=== PATIENT | male | born 1935 | race Caucasian/White ===

== ENCOUNTER → 2016-10-15 | Outpatient (CLI) | payer MEDICARE, BC | END | disposition home or self-care (01) | LOC: LABWHC1 07:34 | PROVIDERS: ATTEND Urology | DX: C61 Malignant neoplasm of prostate (principal) | CPT/HCPCS: 36415; 84153 ==

== ENCOUNTER → 2017-01-22 | Outpatient (CLI) | payer MEDICARE, BC ==
[2017-01-22 12:54] LABS: ALT 38 U/L (21-72); AST 32 U/L (17-59); Alkaline Phosphatase 128 U/L (38-126); Anion Gap 9 mmol/L; Blood Urea Nitrogen 28 mg/dL (9-20); Calcium 10.6 mg/dL (8.4-10.2); Carbon Dioxide 25 mmol/L (22-30); Chloride 107 mmol/L (98-107); Cholesterol 137 mg/dL (<200); Glucose 101 mg/dL (74-99); HDL Cholesterol 58 mg/dL (40-60); Non-African American GFR(MDRD) >60 (>60 ml/min/1.73 sqM); Potassium 4.4 mmol/L (3.5-5.1); Sodium 141 mmol/L (137-145); Total Bilirubin 0.5 mg/dL (0.2-1.3); Total Protein 6.8 g/dL (6.3-8.2); Triglycerides 80 mg/dL (<150)
[2017-01-22 13:16] LABS: Prostate Specific Antigen <0.06 ng/mL (0.00-4.00)
== END | disposition home or self-care (01) ==
LOC: LABWHC1 07:17
PROVIDERS: ATTEND Internal Medicine Interventional Cardiology
DX: C61 Malignant neoplasm of prostate (principal); E78.2 Mixed hyperlipidemia
CPT/HCPCS: 36415; 80053; 80061; 84153

== ENCOUNTER → 2017-04-11 | Outpatient (CLI) | payer MEDICARE, BC | END | disposition home or self-care (01) | LOC: LABWHC1 07:01 | PROVIDERS: ATTEND Urology | DX: C61 Malignant neoplasm of prostate (principal) | CPT/HCPCS: 36415; 84153 ==

== ENCOUNTER → 2017-11-27 | Outpatient (CLI) | payer MEDICARE, BC ==
--- NOTE | 2017-11-27 10:11 | US ---
EXAMINATION TYPE: US kidneys/renal and bladder DATE OF EXAM: 11/27/2017 COMPARISON: Renal ultrasound July 26 2015, CT abdomen August 09 2016 CLINICAL HISTORY: KIDNEY STONES Z84.1. Prostate CA, HX renal cysts, stones. Patient states gross chelsi turia on and off. Patient on Flomax EXAM MEASUREMENTS: Right Kidney: 12.3 x 5.8 x 5.0 cm cm Left Kidney: 12.8 x 4.7 x 5.7 cm Post Void Residual Volume: 0 mL Right Kidney: Upper pole cyst = 9.6 x 8.2 x 8.2 cm, Upper pole cyst = 2.0 x 2.3 x 1.9 cm, Lower pole septated cyst = 3.1 x 2.4 x 1.8 cm, multiple echogenic foci with shadowing. Decreased renal cortex. Left Kidney: 12.8 x 4.7 x 5.7 cm, Upper pole cyst = 1.2 x 1.2 x 1.0cm, mid pole, medial cyst = 1.4 x 1.3 x 1.1 cm, solid appearing mass lateral, mid pole = 2.5 x 2.4 x 2.0 cm, multiple echogenic foci w ith shadowing. Decreased renal cortex. Fullness in renal pelvis noted. Bladder: wnl Bilateral Jets seen: Yes Normal Post Void Residual: Yes There is no evidence for hydronephrosis at this point in time. Several cysts are scattered throughout both kidneys . Largest upper pole level measures 9.6 cm on long axis appears simple in morpholog y. There is 3.1 cm cyst with thin septation corresponds to cystic lesion medially and posteriorly mid to lower pole level right kidney that has thin septa with thin linear calcification on CT. Prominent left renal pelvis is redemonstrated. Several cystic lesions are scattered throughout left k idney. Most suspicious lesion medially left kidney on CT axial image 23 series 3 is less well-seen on ultrasound. There is cortical thinning in both kidneys redemonstrated. There are hyperechoic foci corresponding t o nonobstructing renal calculi bilaterally redemonstrated. IMPRESSION: As above. Redemonstration of bilateral kidney stones without hydronephrosis. Suspicious 2.0 cm solid enhancing mass with washout medially mid pole level left kidney is worrisome for renal cell carcinoma . Consider RFA treatment.
== END ==
LOC: RADUSWWP 09:12
PROVIDERS: ATTEND Urology
DX: N20.0 Calculus of kidney (principal); N28.1 Cyst of kidney, acquired; R93.421 Abnormal radiologic findings on diagnostic imaging of right kidney; R93.422 Abnormal radiologic findings on diagnostic imaging of left kidney; Z84.1 Family history of disorders of kidney and ureter
CPT/HCPCS: 76770

== ENCOUNTER → 2017-12-20 | Outpatient (CLI) | payer MEDICARE, BC ==
[2017-12-20 09:30] LABS: Basophils % (A) 1 %; Eosinophils # (A) 0.1 k/uL (0-0.7); Eosinophils % (A) 2 %; HCT 44.1 % (39.0-53.0); HGB 14.9 gm/dL (13.0-17.5); Lymphocytes # (A) 1.1 k/uL (1.0-4.8); Lymphocytes % (A) 21 %; MCH 33.7 pg (25.0-35.0); MCHC 33.8 g/dL (31.0-37.0); MCV 99.7 fL (80.0-100.0); Monocytes # (A) 0.3 k/uL (0-1.0); Monocytes % (A) 6 %; Neutrophils # (A) 3.6 k/uL (1.3-7.7); Neutrophils % (A) 68 %; Platelet Count 150 k/uL (150-450); RBC 4.42 m/uL (4.30-5.90); RDW 13.9 % (11.5-15.5); WBC 5.4 k/uL (3.8-10.6)
[2017-12-20 09:33] LABS: Appearance,Urine Clear (Clear); Bilirubin,Urine Negative (Negative); Blood,Urine Small (Negative); Color,Urine Yellow; Glucose,Urine (UA) Negative (Negative); Ketones,Urine Negative (Negative); Leukocyte Esterase,Urine Negative (Negative); Mucus,Urine Rare /hpf; Nitrite,Urine Negative (Negative); PH, Urine 5.5 (5.0-8.0); Protein,Urine Trace (Negative); RBC,Urine 17 /hpf (0-5); Specific Gravity,Urine 1.014 (1.001-1.035); Squamous Epithelial Cell,Urine <1 /hpf (0-4); Urobilinogen,Urine <2.0 mg/dL (<2.0); WBC,Urine 2 /hpf (0-5)
[2017-12-20 09:47] LABS: Calcium 10.3 mg/dL (8.4-10.2); Potassium 4.7 mmol/L (3.5-5.1)
== END | disposition home or self-care (01) ==
LOC: LABWHC1 08:38
PROVIDERS: ATTEND Internal Medicine Nephrology
DX: N20.0 Calculus of kidney (principal)
CPT/HCPCS: 36415; 80048; 81001; 85025

== ENCOUNTER → 2017-12-27 | Outpatient (CLI) | payer MEDICARE, BC ==
--- NOTE | 2017-12-28 12:01 | CT ---
EXAMINATION TYPE: CT abdomen pelvis w con DATE OF EXAM: 12/27/2017 COMPARISON: Prior exam 08/09/2016 CT abdomen, renal ultrasound 11/27/2017 HISTORY: Left renal mass found on ultrasound. CT DLP: 707.4 mGycm Automated exposure control for dose reduction was used. TECHNIQUE: Helical acquisition of images from the lung bases through the pelvis have been completed. CONTRAST: Performed with Oral Contrast and with IV Contrast, patient injected with 80 mL of Isovue M300. FINDINGS: There is a hiatal hernia. Coronary artery calcifications are present. LUNG BASES: Punctate subpleural calcified nodule present in the left lower lobe posterior laterally. AORTA: No significant abnormality is appreciated. LIVER/GB: No significant abnormality is appreciated. PANCREAS: No significant abnormality is seen. SPLEEN: Calcified granuloma suspected within the spleen. ADRENALS: No significant abnormality is seen. KIDNEYS: Multiple cysts are again noted to be associated with the kidneys, largest exophytic simple c yst at the upper pole the right kidney measures approximately 9.8 cm in greatest dimension. Posterior cyst shows a small associated calcification within the right kidney. Solid mass enhances in the post erior cortex left kidney and measures approximately 2.7 cm in greatest dimension as on prior CT. Mult iple nonobstructive calculi are scattered within the left kidney, at least 4 calculi, largest at the upper pole measures approximately 7 to 8 mm in greatest dimension. Cortical cyst also associated with the left kidney, at least 3 cysts are present, the largest measuring only 14 mm. REPRODUCTIVE ORGANS: multiple metallic densities associated with the prostate gland. BOWEL: Extensive diverticular changes associated with the sigmoid colon. Colonic interposition noted anterior to the lower aspect of the right lobe of the liver. FREE AIR: No Free Air visible. ASCITES: None visible. PELVIC ADENOPATHY: None visualized. RETROPERITONEAL ADENOPATHY: No Retroperitoneal Adenopathy visible. URINARY BLADDER: Urinary bladder shows wall thickening possibly due to cystitis or more likely chron ic outlet obstruction due to prostatic enlargement.. OSSEOUS STRUCTURES: No significant abnormality is seen. IMPRESSION: STABLE LEFT RENAL SOLID MASS. BILATERAL CYSTIC DISEASE ASSOCIATED WITH THE KIDNEYS, NOT ALL ARE SIMP LE CYSTS. Diverticulosis. Left-sided nephrolithiasis. Old granulomatous disease.
== END ==
LOC: RADCTMAIN 16:56
PROVIDERS: ATTEND Internal Medicine Nephrology
DX: N28.89 Other specified disorders of kidney and ureter (principal); N20.0 Calculus of kidney; K57.90 Diverticulosis of intestine, part unspecified, without perforation or abscess without bleeding; Q61.9 Cystic kidney disease, unspecified
CPT/HCPCS: 82565; 84520; 74177; 36415; Q9967

== ENCOUNTER → 2018-02-04 | Outpatient (CLI) | payer MEDICARE, BC ==
[2018-02-04 10:20] LABS: ALT 27 U/L (21-72); AST 29 U/L (17-59); Albumin 3.9 g/dL (3.5-5.0); Alkaline Phosphatase 106 U/L (38-126); Anion Gap 11 mmol/L; Blood Urea Nitrogen 27 mg/dL (9-20); Calcium 10.3 mg/dL (8.4-10.2); Carbon Dioxide 26 mmol/L (22-30); Chloride 108 mmol/L (98-107); Cholesterol 121 mg/dL (<200); Glucose 91 mg/dL (74-99); HDL Cholesterol 51 mg/dL (40-60); LDL Cholesterol,Calculated 57 mg/dL (0-99); Potassium 4.3 mmol/L (3.5-5.1); Sodium 145 mmol/L (137-145); Total Bilirubin 0.6 mg/dL (0.2-1.3); Total Protein 6.6 g/dL (6.3-8.2); Triglycerides 67 mg/dL (<150)
[2018-02-04 11:03] LABS: Prostate Specific Antigen <0.10 ng/mL (0.00-4.00)
== END | disposition home or self-care (01) ==
LOC: LABWHC1 07:43
PROVIDERS: ATTEND Internal Medicine Interventional Cardiology
DX: C61 Malignant neoplasm of prostate (principal)
CPT/HCPCS: 36415; 80053; 80061; 84153

== ENCOUNTER → 2018-04-07 | Outpatient (CLI) | payer MEDICARE, BC ==
--- NOTE | 2018-04-08 08:26 | US ---
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 EXAM MEASUREMENTS: Right Kidney: 11.1 x 6.0 x 5.9 cm Left Kidney: 11.5 x 5.8 x 5.6 cm Post Void Residual Volume: 18.6 mL Right Kidney: multiple renal cysts with largest at superior pole as simple cyst = 8.5 x 8.8 x 7.1cm; cystic cluster noted lateral mid pole = 3.9 x 3.1 x 2.2cm Left Kidney: multiple renal cysts are seen with largest simple cyst noted upper medial = 1.5 x 1.3 x 1.3cm; hyperechoic foci with posterior shadowing are noted upper and mid pole with upper pole area o f calcification = 1.0 x 0.8 x1.5cm and mid pole area of calcification = 0.9 x 0.8 x 0.6cm; prominent renal pelvis is noted at1.4cm A/P; hypoechoic round mass is noted on image #74 through 81 = 1.8 x 2 .2 x 1.8cm. Bladder: wnl Bilateral Jets seen: yes Normal Post Void Residual: yes No hydronephrosis is seen. Bilateral mild cortical renal thinning is additionally present. IMPRESSION: 1. Multiple nonobstructing left renal calculi the largest measuring 9 mm. No hydronephrosis bilateral ly. 2. Redemonstration of a solid left renal mass measuring 2.2 cm (difference in size is likely to relat e to differences in technique in comparison to the prior CT) concerning for renal cell carcinoma. Per cutaneous biopsy could be considered. 3. Bilateral renal cysts.
== END | disposition home or self-care (01) ==
LOC: RADUSWWP 15:30
PROVIDERS: ATTEND Urology
DX: N20.0 Calculus of kidney (principal); N28.1 Cyst of kidney, acquired; N28.89 Other specified disorders of kidney and ureter
CPT/HCPCS: 76770

== ENCOUNTER → 2018-07-25 | Outpatient (CLI) | payer MEDICARE, BC ==
--- NOTE | 2018-07-25 21:36 | MR ---
EXAMINATION TYPE: MR lumbar spine wo/w con DATE OF EXAM: 07/25/2018 COMPARISON: Prior lumbar MRI 07/31/2016 HISTORY: LBP, hx prostate ca 2015 TECHNIQUE: Multiplanar, multisequence images of the lumbar spine were acquired utilizing 7.5 mL intravenous Gada vist gadolinium contrast. L1-L2: Normal disc appearance without desiccation. No herniation, protrusion or disc bulging. No ca nal stenosis is present. Foramina are patent bilaterally. L2-L3: Facet arthropathy with hypertrophy of the ligamentum flavum causes posterior lateral mass effe ct on the thecal sac. Posterior broad-based disc bulge causes mild anterior mass effect on the thecal sac. No significant foraminal encroachment. Central stenosis shows a similar appearance. Suspect the re is a synovial cyst in the left posterior aspect of the spinal canal causing more mass effect from the left than on the right similar to prior exam, some peripheral enhancement is noted similar to lolita or L3-L4: Small central posterior disc herniation is again noted. Trefoil appearance of the thecal sac i s present due to hypertrophy of ligamentum flavum, facet arthropathy. No significant central stenosis or foraminal encroachment. L4-L5: Posterior broad-based disc bulge causes mild anterior mass effect on the thecal sac. Hypertrop hic change of the ligamentum flavum, facet arthropathy causes posterior lateral mass effect on the th ecal sac, there is a trefoil appearance of the thecal sac as on prior exam. L5-S1: Facet arthropathy with hypertrophy of ligamentum flavum causing posterior lateral mass effect on the thecal sac. Circumferential posterior disc bulge causes contact with the anterior thecal sac a nd possibly proximal S1 nerve roots. No significant foraminal encroachment or central stenosis. Lumbar segments are intact. No paraspinal masses are identified. Conus medullaris has a normal appe arance. Loss of vertebral body height at the anterior aspect of L1 is stable finding, there is multil evel spondylosis with minimal endplate discogenic marrow signal change. Some loss of disc height and signal at the intervertebral levels shows a similar appearance compatible with disc desiccation and d egenerative disc disease. Increased signal at the posterior aspect of the discs at L3-4, L4-5 and L5 S1 may represent small annular tears. Cortical cysts are associated with the right kidney. There may be extrarenal pelvis on the left,, possible solid lesion associated with the posterior cortex of the left kidney is again seen, findings are similar to prior exam. IMPRESSION: Degenerative disc disease, facet arthropathy, findings are similar compared to prior exam. Left renal mass again noted.
== END | disposition home or self-care (01) ==
LOC: RADMRIMAIN 18:46
PROVIDERS: ATTEND Physical Medicine & Rehabilitation
DX: M51.36 Other intervertebral disc degeneration, lumbar region (principal); M46.86 Other specified inflammatory spondylopathies, lumbar region; M50.121 Cervical disc disorder at C4-C5 level with radiculopathy; M43.12 Spondylolisthesis, cervical region; M47.22 Other spondylosis with radiculopathy, cervical region; Z85.46 Personal history of malignant neoplasm of prostate
CPT/HCPCS: 82565; 84520; 72158; 36415; A9585

== ENCOUNTER → 2018-11-13 | Outpatient (CLI) | payer MEDICARE, BC ==
[2018-11-13 16:47] LABS: Albumin 4.2 g/dL (3.80-4.90); Albumin/Globulin Ratio 1.83 (1.60-3.17); Anion Gap 6.6 mmol/L (4.00-12.00); Calcium 10.6 mg/dL (8.7-10.3); Carbon Dioxide 26.4 mmol/L (21.6-31.8); Globulin 2.3 g/dL (1.6-3.3); LDL Cholesterol,Calculated 64.8 mg/dL (0.0-131.0); Potassium 4.8 mmol/L (3.5-5.5); Total Bilirubin 0.6 mg/dL (0.2-1.2); Total Protein 6.5 g/dL (6.2-8.2); VLDL Calculation 11.2 mg/dL (5.00-40.00)
== END | disposition home or self-care (01) ==
LOC: LABWHC1 07:52
PROVIDERS: ATTEND Internal Medicine Interventional Cardiology
DX: E78.2 Mixed hyperlipidemia (principal)
CPT/HCPCS: 36415; 80053; 80061

== ENCOUNTER → 2019-01-19 | Outpatient (CLI) | payer MEDICARE, BC | LOC: LABWHC1 07:28 | PROVIDERS: ATTEND Urology | DX: C61 Malignant neoplasm of prostate (principal) | CPT/HCPCS: 36415; 84153; 84403 ==

== ENCOUNTER → 2019-05-19 | Outpatient (CLI) | payer MEDICARE, BC ==
[2019-05-19 10:27] LABS: Chol/HDL Ratio 2.72; LDL Cholesterol,Calculated 66.2 mg/dL (0.0-131.0); VLDL Calculation 12.8 mg/dL (5.00-40.00)
== END | disposition home or self-care (01) ==
LOC: LABWHC1 07:04
PROVIDERS: ATTEND Nurse Practitioner Adult Health
DX: E78.2 Mixed hyperlipidemia (principal)
CPT/HCPCS: 36415; 80061; 84450; 84460

== ENCOUNTER → 2019-08-05 | Outpatient (CLI) | payer MEDICARE, BC ==
--- NOTE | 2019-08-05 09:59 | MR ---
EXAMINATION TYPE: MR thoracic spine wo con DATE OF EXAM: 08/05/2019 COMPARISON: None HISTORY: rt side thoracic pain, no injury, hx of ca Standard multiplanar, multisequence MRI departmental protocol Multiplanar, multisequence images of the thoracic spine were acquired. FINDINGS: There is moderate to severe degenerative disc disease at all levels. At T1-T2 and T2-T3 no degenerative disc disease, canal stenosis or foraminal encroachment At T3-T4 is a chronic appearing moderate compression fracture T3. Proximal less than 5% retropulsion with no significant thecal sac compression or spinal cord contact. At T4-T5 there is sagittal disc bulging but no evidence of focal herniation, canal stenosis or forami nal encroachment. At T5-T6 there is a small focal central disc protrusion or tiny herniation with mild anterior thelma mounika thecal sac but no spinal cord contact or nerve root impingement. Neural foramina patent. At T6-T7 there is a small focal central disc herniation with mild impression upon the thecal sac. No spinal cord contact or nerve root impingement. Neural foramina patent. At T7-T8 no disc herniation or canal stenosis. No foraminal encroachment. T8-T9 central disc bulging but no canal stenosis or focal herniation. Neural foramina demonstrate mil d bilateral encroachment. At T9-T10 there is central and right paracentral disc bulging. Neural foramina are patent. No Canal s tenosis. Mild bilateral foraminal encroachment. At T10-T11 there is no disc herniation or canal stenosis. Mild facet arthropathy. Mild bilateral fora nolan encroachment. At T11-T12 there is no disc herniation or canal stenosis. No foraminal encroachment. There is no abnormal signal the visualized spinal cord. Benign-appearing renal cysts are noted. There is multilevel facet arthropathy. Visualized aorta of normal caliber. Incidental note is made to ky re degenerative disc disease involving the cervical spine with probable canal stenosis of the lower c ervical region. IMPRESSION: 1. There is a curvature of the spine with multilevel moderate to severe degenerative disc disease. Ma rrow signal is somewhat heterogeneous which is nonspecific. There are no contrasted images provided t o assess for pathologic enhancement. Recommend correlation contrast images or bone scan for further e valuation. 2. Multilevel foraminal encroachment. 3. Chronic appearing compression fracture T3 with minimal retropulsion and no significant mass effect upon the thecal sac or spinal cord contact. 4. Tiny central disc herniation T5-6 and T6-T7 with mild impression of the thecal sac but no spinal c ord contact or nerve root impingement. 5. Multilevel disc bulging as discussed above with no evidence of canal stenosis. 6. images of the cervical spine demonstrates severe multilevel degenerative disc disease with possibl e canal stenosis at multiple levels on the sagittal images. Correlate with MRI as clinically warrante d.
== END | disposition home or self-care (01) ==
LOC: RADMRIMAIN 08:46
PROVIDERS: ATTEND Physical Medicine & Rehabilitation
DX: M51.34 Other intervertebral disc degeneration, thoracic region (principal); M51.24 Other intervertebral disc displacement, thoracic region; M50.30 Other cervical disc degeneration, unspecified cervical region; I51.9 Heart disease, unspecified; E78.5 Hyperlipidemia, unspecified; I25.10 Atherosclerotic heart disease of native coronary artery without angina pectoris; Z85.46 Personal history of malignant neoplasm of prostate
CPT/HCPCS: 72146

== ENCOUNTER → 2019-12-17 | Outpatient (CLI) | payer MEDICARE, BC ==
[2019-12-17 11:26] LABS: African American GFR (CKD) 58.5 (60.0-200.0); Albumin/Globulin Ratio 1.9 (1.60-3.17); Anion Gap 5.6 mmol/L (4.00-12.00); BUN/Creat Ratio 18.46 Ratio (12.00-20.00); Calcium 10.1 mg/dL (8.7-10.3); Carbon Dioxide 27.4 mmol/L (21.6-31.8); Chol/HDL Ratio 2.57; Globulin 2.1 g/dL (1.6-3.3); LDL Cholesterol,Calculated 55.4 mg/dL (0.0-131.0); Non-African American GFR(CKD) 50.5 (60.0-200.0); Potassium 4.6 mmol/L (3.5-5.5); Total Bilirubin 0.8 mg/dL (0.2-1.2); Total Protein 6.1 g/dL (6.2-8.2); VLDL Calculation 13.6 mg/dL (5.00-40.00)
== END | disposition home or self-care (01) ==
LOC: LABWHC1 07:29
PROVIDERS: ATTEND Internal Medicine Interventional Cardiology
DX: E78.2 Mixed hyperlipidemia (principal)
CPT/HCPCS: 36415; 80053; 80061

== ENCOUNTER → 2020-03-08 | Outpatient (CLI) | payer MEDICARE, BC ==
--- NOTE | 2020-03-08 11:20 | US ---
EXAMINATION TYPE: US kidneys/renal and bladder DATE OF EXAM: 03/08/2020 COMPARISON: US dated 04/07/2018 CLINICAL HISTORY: ANDRÉS UNCERTAIN BEHAVIOR LEFT KIDNEY. EXAM MEASUREMENTS: Right Kidney: 11.8 x 4.8 x 5.8 cm Left Kidney: 11.1 x 4.7 x 4.7 cm Right Kidney: Multiple cysts noted, largest superior measuring 7.7 x 5.3 x 5.5cm, cluster of cysts me asuring 3.4 x 1.8 x 2.4cm Left Kidney: possible mild amount of hydro, multiple cysts noted largest measuring 1.7 x 1.5 x 1.7cm , multiple echogenic foci largest measuring 1.0 x 0.5 x 0.7cm, solid mass with vascularity measuring 2.8 x 1.5 x 1.7cm Bladder: wnl Bilateral Jets seen: Yes There is diminished cortical medullary differentiation bilaterally. IMPRESSION: 1. Continued increase in size of the solid left renal mass now measuring 2.8 cm and previously measur ing 2.2 cm. Again this should be considered renal cell carcinoma until proven otherwise and percutane ous biopsy is recommended. 2. Multiple nonobstructing left renal calculi are seen in addition to mild left hydronephrosis that i s new from the prior. 3. Multiple bilateral renal cysts and diminished cortical medullary differentiation bilaterally sugge stive of chronic medical renal disease.
== END | disposition home or self-care (01) ==
LOC: RADUSWWP 09:57
PROVIDERS: ATTEND Urology
DX: N28.1 Cyst of kidney, acquired (principal); N20.0 Calculus of kidney; N28.89 Other specified disorders of kidney and ureter; C61 Malignant neoplasm of prostate
CPT/HCPCS: 76770

== ENCOUNTER → 2020-03-09 | Outpatient (CLI) | payer MEDICARE, BC | END | disposition home or self-care (01) | LOC: LABWHC1 08:05 | PROVIDERS: ATTEND Urology | DX: C61 Malignant neoplasm of prostate (principal) | CPT/HCPCS: 36415; 82040; 84153; 84270; 84403 ==

== ENCOUNTER → 2020-07-14 | Outpatient (CLI) | payer MEDICARE, BC ==
--- NOTE | 2020-07-14 09:31 | US ---
EXAMINATION TYPE: US kidneys/renal and bladder DATE OF EXAM: 07/14/2020 COMPARISON: NONE CLINICAL HISTORY: N20.0 Kidney stone. EXAM MEASUREMENTS: Right kidney: 10.1 x 5.1 x 4.7 cm. Left kidney: 10.6 x 5.2 x 4.4 cm. Right Kidney: Multiple cysts noted, largest superior measuring 8.1 x 6.1 x 5.8cm, cluster of cysts me asuring 3.5 x 1.9 x 2.7cm Left Kidney: possible mild amount of hydro, multiple cysts noted largest measuring 1.7 x 1.5 x 1.7cm, multiple echogenic foci largest measuring 3.0 x 2.1 x 2.1cm, solid appearing mass previously visuali zed appeared more anechoic on today's study measures 2.9 x 2.1 x 2.1 today, previous measurement 2. 8 x 1.5 x 1.7cm Bladder: wnl Bilateral Jets seen: Yes There is no evidence for hydronephrosis at this point in time. No nephrolithiasis is seen. No paxton s are identified. The urinary bladder is anechoic. Bilateral ureteral jets are seen. IMPRESSION: 1. There may be a mild left hydronephrosis. 2. Multiple bilateral renal cysts.
== END | disposition home or self-care (01) ==
LOC: RADUSWWP 06:57
PROVIDERS: ATTEND Urology
DX: N28.1 Cyst of kidney, acquired (principal)
CPT/HCPCS: 76770

== ENCOUNTER → 2020-12-19 | Outpatient (CLI) | payer MEDICARE, BC ==
[2020-12-19 15:45] LABS: ALT 23 U/L (10-49); AST 23 U/L (14-35); African American GFR (CKD) 71.1 (60.0-200.0); Alkaline Phosphatase 120 U/L (41-126); BUN/Creat Ratio 21.82 Ratio (12.00-20.00); Calcium 10.9 mg/dL (8.7-10.3); Carbon Dioxide 27.9 mmol/L (21.6-31.8); Chloride 109 mmol/L (96-109); Cholesterol 130 mg/dL (0-200); Globulin 2.1 g/dL (1.6-3.3); Glucose 91 mg/dL (70-110); Non-African American GFR(CKD) 61.3 (60.0-200.0); Potassium 4.4 mmol/L (3.5-5.5); Sodium 142 mmol/L (135-145); Total Bilirubin 0.9 mg/dL (0.3-1.2); Total Protein 6.5 g/dL (6.2-8.2)
[2020-12-19 15:55] LABS: Prostate Specific Antigen <0.1 ng/mL (0.0-6.5)
[2020-12-23 23:43] LABS: Testosterone, Free, LC/MS/MS 38.1 pg/mL (6.0-73.0)
== END | disposition home or self-care (01) ==
LOC: LABWHC1 07:56
PROVIDERS: ATTEND Nurse Practitioner Adult Health
DX: C61 Malignant neoplasm of prostate (principal); E78.2 Mixed hyperlipidemia; I10 Essential (primary) hypertension
CPT/HCPCS: 36415; 80053; 80061; 82040; 84153; 84270; 84403

== ENCOUNTER → 2021-01-20 | Outpatient (CLI) | payer MEDICARE, BC ==
--- NOTE | 2021-01-22 16:45 | US ---
EXAMINATION TYPE: US kidneys/renal and bladder DATE OF EXAM: 01/20/2021 COMPARISON: 07/14/2020 CLINICAL HISTORY: 85-year-old male N20.0 KIDNEY STONE. TECHNIQUE: Multiple sonographic images of the kidneys and bladder are obtained. FINDINGS: EXAM MEASUREMENTS: Right Kidney: 11.9 x 5.7 x 5.2 cm Left Kidney: 11.9 x 2.3 x 5.1 cm Right Kidney: Largest cyst upper pole measures 6.5 x 8.3 x 7.4 cm and has internal debris. A couple smaller cysts measure up to 2.2 cm. No hydronephrosis. Left Kidney: Upper pole calculus measures 0.9 x 0.9 cm. A few cysts are present measuring up to 2.1 c m. Solid, lobulated appearing lesion at the upper pole measures 3.3 x 2.5 x 3.4 cm. (Versus 2.9 x 2.1 x 2.1 cm, previously on 07/14/2020 and 2.9 x 2.[address] of 12/27/2017). Mild hydronephrosis demo nstrated. Bladder: wnl Bilateral Jets seen: Yes IMPRESSION: 1. There appears to be mild left-sided pelvicaliectasis/hydronephrosis. This may be transient. Correl ate for any left-sided renal colic symptoms. 2. Solid lesion in left kidney currently measuring 3.4 cm (versus 2.9 cm on 07/14/2020 and 2.9 cm on ). Continued follow-up recommended. 3. Bilateral renal cysts, largest on the right measuring up to 6.5 cm containing some debris. Nonobst ructive left renal calculus measuring 9 mm.
== END | disposition home or self-care (01) ==
LOC: RADUSWWP 08:51
PROVIDERS: ATTEND Urology
DX: N20.0 Calculus of kidney (principal); N28.1 Cyst of kidney, acquired
CPT/HCPCS: 76770

== ENCOUNTER → 2021-06-15 | Outpatient (CLI) | payer MEDICARE, BC ==
[2021-06-15 18:33] LABS: African American GFR (CKD) 52.7 (60.0-200.0); BUN/Creat Ratio 16.43 Ratio (12.00-20.00); Calcium 10.5 mg/dL (8.7-10.3); Carbon Dioxide 21.6 mmol/L (21.6-31.8); Chloride 110 mmol/L (96-109); Glucose 102 mg/dL (70-110); Non-African American GFR(CKD) 45.5 (60.0-200.0); Potassium 4.9 mmol/L (3.5-5.5); Sodium 143 mmol/L (135-145)
[2021-06-15 18:55] LABS: Prostate Specific Antigen <0.1 ng/mL (0.0-6.5)
[2021-06-19 13:18] LABS: Albumin, LC/MS/MS 3.9 g/dL (3.6-5.1); Testosterone, Free, LC/MS/MS 44.9 pg/mL (6.0-73.0)
== END | disposition home or self-care (01) ==
LOC: LABWHC1 07:32
PROVIDERS: ATTEND Urology
DX: C61 Malignant neoplasm of prostate (principal)
CPT/HCPCS: 36415; 80048; 82040; 84153; 84270; 84403

== ENCOUNTER → 2021-06-16 | Outpatient (CLI) | payer MEDICARE, BC ==
--- NOTE | 2021-06-16 08:56 | MR ---
EXAMINATION TYPE: MR abdomen wo/w con DATE OF EXAM: 06/16/2021 COMPARISON: Renal ultrasound January 20, 2021. CT abdomen and pelvis December 27, 2017 HISTORY: Prostate Cancer, Kidney Stone per order. CONTRAST: Standard multiplanar, multisequence MRI departmental protocol images were obtained without contrast a nd with 7 mL intravenous Gadavist gadolinium contrast. FINDINGS: Exam is suboptimal as patient is unable to hold breath. Gallbladder appears within normal l imits. Liver remains normal in size. No biliary dilatation. Spleen and both adrenal glands felt withi n normal limits. Pancreas grossly unremarkable. Redemonstration of cortical thinning in both kidneys with scattered simple-appearing thin-walled cyst s majority subcentimeter in size. There is a dominant partially exophytic 7.2 x 5.6 x 6.2 cm thin-wal led cyst laterally from the upper pole right kidney redemonstrated. In addition in the right kidney p osteriorly there is a partially exophytic 1.6 x 1.1 cm slightly T1 and T2 hyperintense lesion without enhancement midpole level image 48 series 1301 for reference consistent with proteinaceous cyst.. Corresponding to CT there is medial heterogeneous enhancing lobulated partially exophytic solid mass posteriorly measuring 4.1 x 3.4 x 3.9 cm axial image 52 series 1601 and coronal image 25 series 501 s lowly growing from 2018 CT consistent with renal cell carcinoma. No adjacent adenopathy. Patent drain ing left renal vein noted. Renal calculi are identified better on CT and ultrasound versus MRI. No hydronephrosis noted bilatera lly. No suspicious small or large bowel dilatation. No intra-abdominal ascites. Mild height loss involving the superior L1 endplate redemonstrated. IMPRESSION: Slowly growing 4.1 cm partially exophytic mid pole posterior enhancing solid mass consist ent with renal cell carcinoma in the left kidney. Evidence of chronic medical renal disease bilateral ly. No new suspicious mass or adenopathy.
== END | disposition home or self-care (01) ==
LOC: RADMRIMAIN 07:26
PROVIDERS: ATTEND Urology
DX: C61 Malignant neoplasm of prostate (principal); N18.9 Chronic kidney disease, unspecified; N28.89 Other specified disorders of kidney and ureter
CPT/HCPCS: 74183; A9585

== ENCOUNTER → 2021-08-08 | Outpatient (CLI) | payer MEDICARE, BC ==
--- NOTE | 2021-08-08 13:21 | MR ---
EXAMINATION TYPE: MR cervical spine wo/w con DATE OF EXAM: 08/08/2021 COMPARISON: None HISTORY: Neck pain x 5 years, Spondylosis without myelopathy or radiculopathy TECHNIQUE: Multiplanar, multisequence images of the cervical spine were acquired without contrast and with 7.5 m L intravenous Gadavist gadolinium contrast. Diffusion weighted imaging was performed. C2-C3: No evidence for degenerative disc disease. No disc bulge/herniation or protrusion. No Canal stenosis. Foramina are patent bilaterally. C3-C4: Posterior extension of endplate disc complex may contact the anterior cervical cord, there is [id number] central stenosis. Uncovertebral joint hypertrophy and facet arthropathy result in bi lateral foraminal encroachment right greater than left. C4-C5: Posterior endplate extension causes minimal anterior aspect of the thecal sac. There is left-s ided foraminal encroachment due to uncovertebral joint hypertrophy and facet arthropathy. Obliteratio n of the disc space suggestive of possible ankylosis to the right of midline. C5-C6: Left posterior paracentral extension of endplate causes some anterolateral aspect of the theca l sac and there is bilateral foraminal encroachment left greater than right due to uncovertebral join t hypertrophy. C6-C7: Listhesis create contributes to cause some spinal stenosis, axial image 24, mild to moderate. Listhesis also contributes to foraminal encroachment. No evident disc herniation. C7-T1: No evidence for degenerative disc disease. No disc bulge/herniation or protrusion. No Canal stenosis. Foramina are patent bilaterally. Facet arthropathy changes are present. Cervical segments are intact. There is normal alignment. Cervical spinal cord is of normal signal. Craniovertebral junction relationships are within normal limits. There is multilevel spondylosis. L oss of disc height and signals present within vertebral levels especially C3-4, C4-5, C5-6 and C6-7, is minimal anterolisthesis grade 1 C6-7. Endplate discogenic marrow signal changes are present. There is no abnormal enhancement. IMPRESSION: Degenerative disc disease, spinal stenosis, multilevel foraminal encroachment.
== END | disposition home or self-care (01) ==
LOC: RADMRIMAIN 10:12
PROVIDERS: ATTEND Physical Medicine & Rehabilitation
DX: M50.33 Other cervical disc degeneration, cervicothoracic region (principal); M48.02 Spinal stenosis, cervical region
CPT/HCPCS: 72156; A9585

== ENCOUNTER → 2021-09-27 | Outpatient (CLI) | payer MEDICARE, BC ==
[2021-09-27 12:27] VITALS: BP 175/83; PULSE 58; RESP 18
--- NOTE | 2021-09-27 12:50 | P.PAINCN ---
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 Last Myocardial Infarction Date:: 2001 History of Any Multi-Drug Resistant Organisms: None Reported Past Surgical History: Appendectomy, Hernia Repair, Prostate Surgery Additional Past Surgical History / Comment(s): Prostatectomy, "surgery to correct urine stream 20 yrs ago". Past Anesthesia/Blood Transfusion Reactions: Motion Sickness Past Psychological History: No Psychological Hx Reported Smoking Status: Never smoker Past Alcohol Use History: None Reported Past Drug Use History: None Reported - Past Family History Mother Family Medical History: Cancer Sister(s) Family Medical History: Cancer Medications and Allergies Home Medications Medication Instructions Recorded Confirmed Type Atorvastatin [Lipitor] 40 mg PO HS 07/12/15 09/27/21 History Enalapril [Vasotec] 5 mg PO BID 07/12/15 09/27/21 History Potassium Citrate [Urocit-K] 10 meq PO BID 07/12/15 09/27/21 History Vit C/E/Zn/Coppr/Lutein/Zeaxan 1 cap PO BID 07/12/15 09/27/21 History [Preservision Areds 2 Softgel] Tamsulosin [Flomax] 0.4 mg PO DAILY #14 cap 05/25/16 09/27/21 Rx Aspirin EC [Ecotrin Low Dose] 81 mg PO DAILY 09/26/21 09/27/21 History Dorzolamide HCl [Trusopt 2%] 1 drop BOTH EYES BID 09/26/21 09/27/21 History Ergocalciferol [Vitamin D2 (1250 1,250 mcg PO Q14D 09/26/21 09/27/21 History Mcg = 22043 Iu)] Latanoprost [Xalatan 0.005%] 1 drop BOTH EYES DAILY 09/26/21 09/27/21 History Meloxicam 15 mg PO DAILY 09/26/21 09/27/21 History Allergies Allergy/AdvReac Type Severity Reaction Status Date / Time No Known Allergies Allergy Verified 09/27/21 12:19 Physical Exam Vitals: Vital Signs Pulse Resp BP Pulse Ox 09/27/21 12:20 58 L 18 175/83 98 Physical Examinations : -Constitutiona : Cooperative , not in acute distress . -HEENT : nech : supple , no Lymphadenopathy , normal thyroid size . : eyes : no ptosis , no icterus, no photophobia . - neurologic : Cranial nerve II to XII intact , no focal neurological deffecit . -psychatric : alert , oriented X 3 , appropriate affect , intact judgment and insight . -Lymphatic : no Lymphadenopathy . - musculoskeltal : Cervical Spine motor stregnth in the deltoid and biceps, normal right side , normal Left side motor stregnth biceps and the wrist extensors normal right side ,normal left side . motor stregnth in the triceps muscle . normal Right side , normal Left side deep tendon reflexes normal at the biceps , normal at Brachioradialis , normal at triceps. cervical facet loading test: Positive Bilaterally Spurling test= positive Right , positive left. Neck distraction test= positive Right , positive left. Josi sign= positive right, positive left . Lumber spine moter stegnth lower extremities ,thigh and legs 5/5 Right side , 5/5 Left side Results Comments: MRI of the cervical spine= multilevel cervical spondylosis with cervical facet arthropathy multilevel cervical spinal stenosis and multilevel cervical degenerative disc disease. Assessment and Plan Plan: assessment and plan=1-cervical spondylosis with cervical facet arthropathy without myelopathy. 2-cervical spinal stenosis. 3-cervical degenerative disc disease. he had excellent pain relief after RFA of the medial branch cervical area done 2 years ago, he could benefit from repeat RFA he will be scheduled to follow RFA medial branch cervical area at C3, C4 , C5 bilaterally Time with Patient: Greater than 30 PQRS Measure Charge Sheet Measure #130: Documentation of Current Meds in Medical Chart: Patient's medications documented in chart Measure #226: Tobacco Use: Screen & Cessation Intervention: Pt not a tobacco user Measure #111: Pneumonia Vaccination: Pneumococcal vaccine administered or previously received Measure #47: Advance Care Plan: Advance care planning discussed & documented, pt chose/unable to give Measure #412: Opioid Treatment Agreement: No documentation of signed opioid treatment agreement Measure #408: Opioid Therapy Follow-up Evaluation: Patient had NO f/u eval minimum every 3 months during opioid therapy Measure #317: Preventitive Care & Scrn High Bld Press & F/U: Pre-hypertensive or hypertensive BP documented, pt will f/u with PCP Measure #128: Body Mass Index (BMI) Screening & Follow-up: BMI documented within normal parameters Measure #131: Pain Assessment & Follow-up: Pain positive & plan documented, Follow-up scheduled Measure #431: Unhealthy Alcohol Use Preventative Care & Scrn: Patient not identified as an unhealthy alcohol user Mode of Arrival: Ambulatory - Pain Location Bilateral Shoulder Non-Pharmacological Interventions: Heat, Inactivity, Position/Reposition, Stretching Pharmacological Interventions: PRN Medication PQRS Narrative: Smoking Status Never smoker Blood Pressure 175/83 Pain Intensity [Bilateral 3 Shoulder] Scale Used Numeric (1 - 10) Hx Alcohol Use (MH) No Home Medications: Ambulatory Orders Atorvastatin [Lipitor] 40 mg PO HS 07/12/15 Enalapril [Vasotec] 5 mg PO BID 07/12/15 Potassium Citrate [Urocit-K] 10 meq PO BID 07/12/15 Vit C/E/Zn/Coppr/Lutein/Zeaxan [Preservision Areds 2 Softgel] 1 cap PO BID 07/12/15 Tamsulosin [Flomax] 0.4 mg PO DAILY #14 cap 05/25/16 Aspirin EC [Ecotrin Low Dose] 81 mg PO DAILY 09/26/21 Dorzolamide HCl [Trusopt 2%] 1 drop BOTH EYES BID 09/26/21 Ergocalciferol [Vitamin D2 (1250 Mcg = 91475 Iu)] 1,250 mcg PO Q14D 09/26/21 Latanoprost [Xalatan 0.005%] 1 drop BOTH EYES DAILY 09/26/21 Meloxicam 15 mg PO DAILY 09/26/21
== END ==
LOC: PNWHC3 10:55
PROVIDERS: ATTEND Specialist
DX: M47.812 Spondylosis without myelopathy or radiculopathy, cervical region (principal); M48.02 Spinal stenosis, cervical region; M50.20 Other cervical disc displacement, unspecified cervical region; E78.5 Hyperlipidemia, unspecified; I10 Essential (primary) hypertension; I25.2 Old myocardial infarction; M19.90 Unspecified osteoarthritis, unspecified site; Z79.82 Long term (current) use of aspirin; Z79.899 Other long term (current) drug therapy
CPT/HCPCS: 99211

== ENCOUNTER → 2021-11-10 | Day surgery (SDC) | payer MEDICARE, BC ==
[2021-11-08 14:35] VITALS: BMI 24.7
[~2021-11-10] MED LIST: IV FLUID CONTINUATION 1,000 ML IV ONE; LACTATED RINGERS 1,000 ML IV SCH; MIDAZOLAM 2 MG/2 ML VIAL ONE; ROPIVACAINE 5MG/ML 20ML VIAL ONE; fentaNYL (PF) 50 MCG/ML 2 ML AMP ONE; methylPREDNISolone ACETATE 40 MG/ML 1 ML VIAL ONE
[2021-11-10 11:30] VITALS: TEMP 97.9
--- NOTE | 2021-11-10 13:24 | P.PCN ---
Date of Procedure: 11/10/21 Procedure(s) Performed: PREOPERATIVE DIAGNOSIS: 1-Cervical spondylosis with Facet Arthropathy without myelopathy. 2-cervical degenerative disc disease. 3-cervical spinal stenosis POSTOPERATIVE DIAGNOSIS: Same as preop diagnosis. PROCEDURES: Radiofrequency thermocoagulation, Bilateral C3, C4, C5, medial branch with Fluroscopy Guidence(fluoroscopy was available in etiology department ) (to denervate the facet joint at Bilateral C3- 4 , C4- 5 ) ANESTHESIA: Monitored anesthesia care as per anesthesia department. EBL: Minimal PROCEDURE INDICATION: The patient with neck pain secondary to cervical arthropathy who had more than 50% relief of her pain with previous diagnostic cervical medial branch block. PROCEDURE DESCRIPTION / TECHNIQUE: The patient was seen and identified in the preoperative area. Risks, benefits, complications, and alternatives were di scussed with the patient, the patient agreed to proceed with the procedure and signed the consent. IV was started. Vital signs remained stable throughout the procedure. Patient was taken to the OR and time out was completed. The patient was placed in the prone position on the procedure table. A pillow was placed under the patients chest to increase the cervical interlaminar space. The cervical area was prepped and draped in the usual sterile fashion. Critical pause was taken. Vital signs were closely monitored during the procedure. Conscious sedation was used during the procedure to decrease patients anxiety. Using cross-table lateral fluoroscopy, the centroid of the trapezoid of Right C3, C4, C5, were identified, marked, and localized with 1% lidocaine. Subsequently, a 20 [id number] radiofrequency cannula with a 10-mm active tip was advanced guided by fluoroscopy to the centroid of the trapezoid of Right C3, C4, C5, . Needle tip position was confirmed at the centroid of the trapezoids of Right C3, C4, C5 with anteroposterior fluoroscopy. Each site then underwent sensory testing at 50 Hz and 0 to 1 volt and motor testing at 2 Hz and 0 to 3 volt with local stimulation, but no radicular symptoms down the arm. Thereafter each sites underwent radiofrequency thermocoagulation at 80 degrees celsius for 90 seconds after injecting 0.5 ml of PF Ropivacaine 0.5 %. After thermoco agulation, 1 ml of the block solution containing Depo-Medrol 20 mg and 3 mL of preservative-free normal saline was injected at the right C3, C4, C5 levels after negative aspiration of CSF and blood and with no paresthesias. Cannulas were retracted while injecting lidocaine 1% until the needle is out. Then the exact same procedure was repeated for the left side at C3, C4, and C5 level end of the procedure the Skin was cleansed and bandages were applied. COMPLICATIONS: No acute complications. DISPOSITION / PLANS: The patient was placed in a supine position and transferred to the recovery area in a stable condition for observation and was discharged from the recovery room after meeting discharge criteria. Home discharge instructions given to the patient by the staff. The patient was reex amined prior to discharge. The patient will schedule a follow up in the clinic in 2-4 weeks.
[2021-11-10 13:59] VITALS: BP 152/75; PULSE 52; RESP 16
--- NOTE | 2021-11-10 14:15 | FL ---
Fluoroscopy HISTORY: Pain 35 seconds fluoroscopy time supplied to the referring clinician. 4 intraoperative C-arm images docum ent the procedure. See dictated report from anesthesia.
== END | disposition home or self-care (01) ==
LOC: ORPAIN 11:02
PROVIDERS: ATTEND Specialist
DX: M47.812 Spondylosis without myelopathy or radiculopathy, cervical region (principal); M50.30 Other cervical disc degeneration, unspecified cervical region; M48.02 Spinal stenosis, cervical region; I10 Essential (primary) hypertension; E78.5 Hyperlipidemia, unspecified; I25.2 Old myocardial infarction; Z87.442 Personal history of urinary calculi; M19.90 Unspecified osteoarthritis, unspecified site; Z85.46 Personal history of malignant neoplasm of prostate; Z79.1 Long term (current) use of non-steroidal anti-inflammatories (NSAID); Z79.82 Long term (current) use of aspirin; Z79.899 Other long term (current) drug therapy
CPT/HCPCS: 64633; 64634; J2250; J1030; J3010; J2795

== ENCOUNTER → 2021-11-30 | Outpatient (CLI) | payer MEDICARE, BC ==
[2021-11-30 11:42] VITALS: BP 163/80; PULSE 64; RESP 18; TEMP 97.8
--- NOTE | 2021-11-30 11:55 | P.PN ---
Subjective Progress Note Date: 11/30/21 Principal diagnosis: A 86 yr old male with a history of severe and chronic neck pain secondary to cervical degenerative disc diseases and spondylosis with facet arthropathies presents today for evaluation status post bilateral RFA of the C3-C4, C4-C5 . patient states he expressed 80% pain relief and is currently at a 2 out of 10 intensity pain in the middle aspect of his cervical spine without radiation of pain. Pain is dull/ achy. Pain is provoked by lifting or extension . Pain is alleviated with medications, topicals, injections, physical therapy currently, home based stretching regimen, massage therapy, hot shower bath and rest . Interventional pain procedures completed include bilateral RFA of the C3-C4, C4- C5 Patient is currently on Mobic [address] Velasco Patient denies any side effects of the medication(s), denies excessive drowsiness or sleepiness, denies suicidal ideation and reports that the current pain medication is helping to control the pain and improve activities of daily living. Patient denies any motor or sensory deficits. Patient denies any fever or night sweats, denies any change in the bowel movements or urination. Physical Examination: -Constitutional: Cooperative. Not in acute distress . -HEENT: Neck is supple. No lymphadenopathy. No thyromegaly. Normal thyroid size. Eyes: No ptosis , no icterus, no photophobia. ENT: No auditory deficits. Normal oropharynx. No Thrush. - Respiratory: Chest clear to auscultations bilaterally. No wheezing. No rhonchi. - Cardiovascular: Regular rate and rhythm. S1 / S2 , no S3 , no S4. - Gastrointestinal: Abdomen soft no tenderness. Bowel sounds positive in all four quadrants. No organomegaly. - Genitourinary: Deferred. - Neurologic: Cranial nerve II to XII intact. No focal neurological deficits. - Psychatric: Alert & oriented x 3. Matching mood & appropriate affect. Judgment and insight intact. - Lymphatic: No Lymphadenopathy. - Musculoskeletal: Cervical spine: Muscle bulk/ tone/ strength in the bilateral upper extremities normal. Vertebral body tenderness to palpation over C4 Facet loading test cervical area positive. Lumbar spine: Motor bulk/ tone/ strength lower extremities , thigh and legs : 5/5 Deep tendon reflexes : Normal Knee Jerk. Normal Ankle Jerk . Vertebral body tenderness to palpation over Lumbar Facet Loading Test positive Straight Leg Raise: positive at 30 degrees right side/ left side Gaenslen's Test positive Sacral spine : Severe tenderness over the Sacroiliac joint: right side / left side Range of motion: Flexion of the lumbar spine <60 degrees Range of motion: Extension of the lumbar spine <20 degrees Gaenslen's Test positive Levy test: positive right side / left side Assessment and plan: Chronic neck pain secondary to cervical degenerative disc disease , spondylosis with facet arthropathy without myelopathy Patient may return to office on as-needed basis All patient questions answered MAPS reviewed and it was appropriate. I have spent 31 minutes on patient care today. Dr Herzog was available by phone for the evaluation of this patient. The time was used to review the medical records including relevant urine studies and Prescription history (MAPs), review of the available imaging, evaluation and examination of the patient, coordination of care with the medical staff and if applicable referring physicians, as well as creation of the medical record Objective - Vital Signs Vital signs: Vital Signs Temp 97.8 F 11/30/21 11:38 Pulse 64 11/30/21 11:38 Resp 18 11/30/21 11:38 BP 163/80 11/30/21 11:38 Pulse Ox 94 L 11/30/21 11:38 Intake & Output 11/29/21 11/30/21 11/30/21 18:59 06:59 18:59 Weight 77.111 kg PQRS Measure Charge Sheet Mode of Arrival: Ambulatory - Pain Location Neck Non-Pharmacological Interventions: Heat, Home Exercise, Massage, Physical Therapy, Sitting, Stretching Pharmacological Interventions: Block, Medication, Topical Medication PQRS Narrative: Smoking Status Never smoker Blood Pressure 163/80 Pain Intensity [Neck] 2 Scale Used Numeric (1 - 10) Hx Alcohol Use (MH) No Home Medications: Ambulatory Orders Atorvastatin [Lipitor] 40 mg PO HS 07/12/15 Enalapril [Vasotec] 5 mg PO BID 07/12/15 Potassium Citrate [Urocit-K] 10 meq PO BID 07/12/15 Vit C/E/Zn/Coppr/Lutein/Zeaxan [Preservision Areds 2 Softgel] 1 cap PO BID 07/12/15 Tamsulosin [Flomax] 0.4 mg PO DAILY #14 cap 05/25/16 Aspirin EC [Ecotrin Low Dose] 81 mg PO DAILY 09/26/21 Dorzolamide HCl [Trusopt 2%] 1 drop BOTH EYES BID 09/26/21 Ergocalciferol [Vitamin D2 (1250 Mcg = 37157 Iu)] 1,250 mcg PO Q14D 09/26/21 Latanoprost [Xalatan 0.005%] 1 drop BOTH EYES DAILY 09/26/21 Meloxicam 15 mg PO DAILY 09/26/21 Metoprolol Tartrate [Lopressor] 12.5 mg PO DAILY 11/08/21 Diclofenac Sodium Gel [Voltaren Gel] 100 gm TOPICAL DIRECTED 11/29/21
== END ==
LOC: PNWHC3 10:59
PROVIDERS: ATTEND Physician Assistant Medical
DX: M50.30 Other cervical disc degeneration, unspecified cervical region (principal); M47.812 Spondylosis without myelopathy or radiculopathy, cervical region; G89.29 Other chronic pain
CPT/HCPCS: 99211

== ENCOUNTER → 2022-01-16 | Outpatient (CLI) | payer MEDICARE, BC ==
[2022-01-16 14:49] LABS: ALT 23 U/L (10-49); AST 27 U/L (14-35); African American GFR (CKD) 60.5 (60.0-200.0); Albumin 4.1 g/dL (3.8-4.9); Albumin/Globulin Ratio 1.49 (1.60-3.17); Alkaline Phosphatase 117 U/L (41-126); BUN/Creat Ratio 18.16 Ratio (12.00-20.00); Blood Urea Nitrogen 22.7 mg/dL (9.0-27.0); Calcium 10.9 mg/dL (8.7-10.3); Carbon Dioxide 22.9 mmol/L (20.0-27.5); Chloride 107 mmol/L (96-109); Globulin 2.8 g/dL (1.6-3.3); Glucose 95 mg/dL (70-110); LDL Cholesterol,Calculated 66.4 mg/dL (0.0-131.0); Non-African American GFR(CKD) 52.2 (60.0-200.0); Potassium 5.2 mmol/L (3.5-5.5); Sodium 140 mmol/L (135-145); Total Protein 6.9 g/dL (6.2-8.2); VLDL Calculation 12.26 mg/dL (5.00-40.00)
== END | disposition home or self-care (01) ==
LOC: LABWHC1 08:25
PROVIDERS: ATTEND Internal Medicine Interventional Cardiology
DX: C61 Malignant neoplasm of prostate (principal); E78.2 Mixed hyperlipidemia
CPT/HCPCS: 36415; 80053; 80061; 84153

== ENCOUNTER → 2022-02-06 | Outpatient (CLI) | payer MEDICARE, BC ==
--- NOTE | 2022-02-06 11:24 | US ---
EXAMINATION TYPE: US kidneys/renal and bladder DATE OF EXAM: 02/06/2022 COMPARISON: CT 2018. Renal US from 01/20/2021. CLINICAL HISTORY: N20.0 Calculus of kidney. h/o renal stone and cysts EXAM MEASUREMENTS: Right Kidney: 10.9 x 4.9 x 5.5 cm Left Kidney: 10.8 x 4.3 x 5.8 cm Right Kidney: multiple cysts, largest with internal debris = 6.6 x 6.3 x 5.2cm Left Kidney: 1.0 known renal stone, 3.2 x 2.8 x 2.6cm superior pole lesion that may represent complex cyst versus other etiology, stable in size from previous US Bladder: wnl Bilateral Jets seen: Yes increased cortical echogenicity in the right kidney. Large exophytic thin- walled cyst upper pole level right kidney is not completely anechoic correlating with prior studies. Bladder appears within normal limits. Bilateral distal ureter jets are seen. Cortical thinning and in creased echogenicity in both kidneys more prominent in the left kidney. Redemonstration of some scatt ered nonobstructing left renal calculi and a few smaller simple appearing thin-walled cyst. Persisten t 3.2 cm hypoechoic lesion with irregular margins upper to mid pole level medially corresponds to the more suspicious enhancing solid mass on CT, vascularity not clearly seen on ultrasound. IMPRESSION: As above. Stable suspicious 3.2 cm nonsimple cyst upper to midpole level medially left ki dney worrisome for neoplasm based on 2018 CT. Left-sided renal calculi redemonstrated. No hydronephro sis seen bilaterally. Evidence of chronic medical renal disease redemonstrated.
== END | disposition home or self-care (01) ==
LOC: RADUSWWP 09:26
PROVIDERS: ATTEND Urology
DX: N20.0 Calculus of kidney (principal); N28.1 Cyst of kidney, acquired
CPT/HCPCS: 76770

== ENCOUNTER → 2022-07-19 | Outpatient (CLI) | payer MEDICARE, BC ==
[2022-07-19 11:18] LABS: ALT 20 U/L (10-49); AST 21 U/L (14-35); African American GFR (CKD) 56.7 (60.0-200.0); Albumin/Globulin Ratio 1.68 (1.60-3.17); Alkaline Phosphatase 122 U/L (41-126); BUN/Creat Ratio 20.08 Ratio (12.00-20.00); Blood Urea Nitrogen 26.3 mg/dL (9.0-27.0); Calcium 10.8 mg/dL (8.7-10.3); Carbon Dioxide 26.6 mmol/L (20.0-27.5); Chloride 107 mmol/L (96-109); Chol/HDL Ratio 2.29 Ratio; Globulin 2.4 g/dL (1.6-3.3); Glucose 114 mg/dL (70-110); LDL Cholesterol,Calculated 58.6 mg/dL (0.0-131.0); Potassium 4.7 mmol/L (3.5-5.5); Sodium 140 mmol/L (135-145); Total Protein 6.4 g/dL (6.2-8.2); VLDL Calculation 12.38 mg/dL (5.00-40.00)
== END | disposition home or self-care (01) ==
LOC: LABWHC1 07:33
PROVIDERS: ATTEND Internal Medicine Interventional Cardiology
DX: C61 Malignant neoplasm of prostate (principal); I10 Essential (primary) hypertension; E78.2 Mixed hyperlipidemia
CPT/HCPCS: 36415; 80053; 80061; 82040; 84153; 84270; 84403

== ENCOUNTER → 2023-01-08 | Outpatient (CLI) | payer MEDICARE ==
[2023-01-08 11:30] LABS: ALT 21 U/L (10-49); AST 20 U/L (14-35); African American GFR (CKD) 52.4 (60.0-200.0); Albumin 4.1 g/dL (3.8-4.9); Albumin/Globulin Ratio 1.58 (1.60-3.17); Alkaline Phosphatase 118 U/L (41-126); BUN/Creat Ratio 20.07 Ratio (12.00-20.00); Blood Urea Nitrogen 28.1 mg/dL (9.0-27.0); Calcium 10.9 mg/dL (8.7-10.3); Carbon Dioxide 25.2 mmol/L (20.0-27.5); Chloride 106 mmol/L (96-109); Chol/HDL Ratio 2.47 Ratio; Globulin 2.6 g/dL (1.6-3.3); Glucose 95 mg/dL (70-110); LDL Cholesterol,Calculated 60.1 mg/dL (0.0-131.0); Non-African American GFR(CKD) 45.2 (60.0-200.0); Potassium 4.9 mmol/L (3.5-5.5); Sodium 141 mmol/L (135-145); Total Protein 6.7 g/dL (6.2-8.2); VLDL Calculation 11.32 mg/dL (5.00-40.00)
== END | disposition home or self-care (01) ==
LOC: LABWHC1 07:00
PROVIDERS: ATTEND Internal Medicine Interventional Cardiology
DX: C61 Malignant neoplasm of prostate (principal); E78.2 Mixed hyperlipidemia
CPT/HCPCS: 36415; 80053; 80061; 84153

== ENCOUNTER → 2023-02-15 | Outpatient (CLI) | payer MEDICARE ==
--- NOTE | 2023-02-15 13:49 | US ---
EXAMINATION TYPE: US kidneys/renal and bladder DATE OF EXAM: 02/15/2023 COMPARISON: Multiple renal ultrasounds most recently 02/06/2022, CT abdomen and pelvis 12/27/2017 CLINICAL INDICATION: Male, 87 years old with history of N20.0 CALCULUS OF KIDNEY; Kidney stone EXAM MEASUREMENTS: Right Kidney: 102 x 5.7 x 3.1 cm Left Kidney: 10.6 x 5.2 x 3.9 cm Multiple grayscale images of the kidneys with color Doppler ultrasound images also obtained of the ur inary bladder. Right Kidney: multiple cystic areas, largest = 6.0 x 6.6 x 6.4cm Left Kidney: upper pole lesion = 3.3 x 3.4 x 3.5cm. stones = 0.8cm and 0.8cm Bladder: wnl Bilateral Jets seen: no No hydronephrosis. Cortical thinning and increased echogenicity of both kidneys with left greater darci n right. Redemonstration of scattered bilateral nonobstructing calculi. Persistent left upper pole up per pole lesion with irregular margins. Few bilateral simple appearing thin-walled cyst. Urinary blad jacy is anechoic. IMPRESSION: 1. No hydronephrosis. 2. Nonobstructive bilateral renal calculi. 3. Stable to marginal increase in size of left upper pole lesion again suspicious for renal neoplasm . Consider further evaluation with CT abdomen (renal mass protocol).
== END | disposition home or self-care (01) ==
LOC: RADUSWWP 12:52
PROVIDERS: ATTEND Urology
DX: N20.0 Calculus of kidney (principal); N28.89 Other specified disorders of kidney and ureter
CPT/HCPCS: 76770

== ENCOUNTER → 2023-04-12 | Outpatient (CLI) | payer MEDICARE | END | disposition home or self-care (01) | LOC: LABWHC1 08:22 | PROVIDERS: ATTEND Family Medicine | DX: E11.9 Type 2 diabetes mellitus without complications (principal) | CPT/HCPCS: 36415; 83036 ==

== ENCOUNTER → 2023-05-10 | Outpatient (CLI) | payer MEDICARE ==
--- NOTE | 2023-05-10 12:44 | CT ---
EXAMINATION TYPE: CT sinus wo con DATE OF EXAM: 05/10/2023 COMPARISON: None HISTORY: right nasal pain CT DLP: 570 mGycm. Automated Exposure Control for Dose Reduction was Utilized. TECHNIQUE: CT scan of the sinuses is performed without contrast, axial images are obtained, coronal r eformatted images are also reviewed. FINDINGS: The paranasal sinuses including the frontal, ethmoid, sphenoid, and maxillary sinuses bila terally are well-aerated. Mild mucosal thickening involving maxillary sinuses and ethmoid air cells. No evidence of gallstones. Minimal post thickening along the left lateral margin of the sphenoid sinu s and within the frontal sinus.. The ostiomeatal complex is patent bilaterally on the coronal images . Nasal septal deviation noted. Visualized portion of mastoid air cells show no abnormal opacification. The globes are intact bilaterally. Intracranially there is mild generalized degenerative change IMPRESSION: 1. Minimal changes of vega chronic sinusitis with the ostiomeatal complex is patent bilaterally. 2. Nasal septal deviation.
== END | disposition home or self-care (01) ==
LOC: RADCTMAIN 12:01
PROVIDERS: ATTEND Otolaryngology
DX: J34.89 Other specified disorders of nose and nasal sinuses (principal); J32.9 Chronic sinusitis, unspecified; J34.2 Deviated nasal septum
CPT/HCPCS: 70486

== ENCOUNTER → 2023-08-20 | Outpatient (CLI) | payer MEDICARE ==
--- NOTE | 2023-08-20 09:39 | US ---
EXAMINATION TYPE: US kidneys/renal and bladder DATE OF EXAM: 08/20/2023 COMPARISON: NONE CLINICAL INDICATION: Male, 88 years old with history of D41.02 NEOPLASM OF UNCERTAIN BEHAVIOR OF LEFT KIDN; EXAM MEASUREMENTS: Right Kidney: 11.5 x 4.6 x 5.7 cm Left Kidney: 11.6 x 4.2 x 5.0 cm Right Kidney: multiple cystic areas, largest lateral cyst appears complex - 6.3 x 6.6 x 6.1cm, patien t states no blood seen in urine Left Kidney: multiple small stones, largest = 0.7cm, complex lesion seen superiorly = 3.9 x 4.2 x 3.1 cm Bladder: wnl Bilateral Jets seen: right only No hydronephrosis. Cortical thinning and increased echogenicity of both kidneys with left greater darci n right. Redemonstration of nonobstructing left calculi. Persistent right upper pole 6.3 x 6.1 x 6.6 cm lesion with hypoechoic appearance and no internal color flow. Previously measured 6.0 x 6.6 x 6.4 cm. Persistent 3.9 x 4.2 x 3.1 cm lesion within superior pole left kidney with hypoechoic appearance and no internal color flow. Previously measured 3.3 x 3.4 x 3.5 cm. Few bilateral simple appearing th in-walled cysts. Urinary bladder is anechoic. Right ureter jet only visualized. IMPRESSION: 1. Marginal increase in size of 4.2 cm left superior pole hypoechoic indeterminate renal lesion. Sta ble right upper renal pole 6.6 cm hypoechoic indeterminate lesion. Both these lesions are suspicious and further evaluation with CT or MR abdomen renal mass protocol is again recommended. 2. Nonobstructive left renal calculi. 3. No hydronephrosis. 4. Findings of chronic medical renal disease redemonstrated.
== END | disposition home or self-care (01) ==
LOC: RADUSWWP 07:32
PROVIDERS: ATTEND Urology
DX: D41.02 Neoplasm of uncertain behavior of left kidney (principal); N20.0 Calculus of kidney
CPT/HCPCS: 76770

== ENCOUNTER → 2023-09-13 | Outpatient (CLI) | payer MEDICARE ==
--- NOTE | 2023-09-14 12:33 | MR ---
EXAMINATION TYPE: MR abdomen wo/w con DATE OF EXAM: 09/13/2023 9:56 AM CLINICAL INDICATION:Male, 88 years old with history of R06.02 SOB ON EXERTION; left renal mass. COMPARISON: CT scan abdomen from MR abdomen 06/16/2021. TECHNIQUE: Multiplanar multi-sequence imaging was performed without contrast. Post contrast imaging was performed. Post IV contrast subtraction images were also submitted for review. IV Contrast: 7 cc Gadavist. FINDINGS: LOWER CHEST: No gross irregularity. ABDOMEN Evaluation limited by respiratory motion. Liver: No evidence for hepatic steatosis or cirrhosis. Gallbladder and Bile ducts: No evidence for ductal dilation, or biliary stricture or evidence of chol edocholithiasis. The gallbladder is within normal limits. Pancreas: No ductal dilation. No evidence for solid mass. Pancreatic uncinate process cystic structur e felt to represent dilated duct series 401 image 21. Spleen: Normal for size. Adrenal glands: Unremarkable. Kidneys: Right: Scattered renal cysts some with thin septations. The predominant high T2 signal. No suspicious right renal masses. Left: Exophytic left renal mass along the medial aspect of the upper pole measuring roughly 5.4 x 2.6 x 4.7 cm, previously 4.0 x 2.5 x 3.9 cm. Additional high T2 low T1 signal simple appearing renal cys ts. Stomach and Bowel: No evidence for bowel wall thickening or evidence for obstruction.. Scattered colo terrence diverticula. Peritoneum: No evidence of pneumoperitoneum or free fluid. Vasculature: No aortic aneurysm. Musculoskeletal: The osseous structures appear intact. No suspicious lesions. Lymph Nodes: No gross evidence for lymphadenopathy. Abdominal wall: Unremarkable. IMPRESSION: 1. Slowly growing left renal exophytic mass medially. Additional bilateral simple appearing renal cy sts. 2. No evidence for lymphadenopathy or abnormal enhancement within the osseous structures.
== END | disposition home or self-care (01) ==
LOC: RADMRIMAIN 08:51
PROVIDERS: ATTEND Urology
DX: N28.1 Cyst of kidney, acquired (principal); R06.02 Shortness of breath
CPT/HCPCS: 82565; 84520; 74183; A9585

== ENCOUNTER 2023-09-14 08:15 | Emergency (ER) | payer MEDICARE ==
[2023-09-14 08:42] VITALS: RESP 20; TEMP 100.2
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
[2023-09-14 09:13] LABS: Basophils % (A) 1 %; Eosinophils # (A) 0.1 k/uL (0-0.7); Eosinophils % (A) 1 %; HCT 43.3 % (39.0-53.0); HGB 14.6 gm/dL (13.0-17.5); Lymphocytes # (A) 0.9 k/uL (1.0-4.8); Lymphocytes % (A) 11 %; MCH 33.3 pg (25.0-35.0); MCHC 33.7 g/dL (31.0-37.0); MCV 98.9 fL (80.0-100.0); Mean Platelet Volume 7.3; Monocytes % (A) 12 %; Neutrophils # (A) 5.7 k/uL (1.3-7.7); Neutrophils % (A) 72 %; Platelet Count 168 k/uL (150-450); RBC 4.38 m/uL (4.30-5.90); RDW 12.9 % (11.5-15.5); WBC 7.9 k/uL (3.8-10.6)
[2023-09-14 09:25] LABS: African American GFR (CKD) 63 (>60 ml/min/1.73 sqM); Anion Gap 11 mmol/L; Blood Urea Nitrogen 26 mg/dL (9-20); Calcium 10.7 mg/dL (8.4-10.2); Carbon Dioxide 19 mmol/L (22-30); Chloride 105 mmol/L (98-107); Glucose 140 mg/dL (74-99); Non-African American GFR(CKD) 54 (>60 ml/min/1.73 sqM); Potassium 4.6 mmol/L (3.5-5.1); Sodium 135 mmol/L (137-145)
[2023-09-14 10:13] VITALS: BP 120/80; PULSE 86
== END 2023-09-14 10:03 | disposition home or self-care (01) ==
LOC: EC 08:15
DX: U07.1 COVID-19 (principal); E78.5 Hyperlipidemia, unspecified; I10 Essential (primary) hypertension; I25.2 Old myocardial infarction; M19.90 Unspecified osteoarthritis, unspecified site; Z79.82 Long term (current) use of aspirin; Z79.899 Other long term (current) drug therapy
CPT/HCPCS: 36415; 80048; 85025; 99283

== ENCOUNTER → 2024-01-14 | Outpatient (CLI) | payer MEDICARE ==
[2024-01-14 11:06] LABS: ALT 24 U/L (10-49); AST 26 U/L (14-35); Albumin 4.1 g/dL (3.8-4.9); Albumin/Globulin Ratio 1.58 Ratio (1.60-3.17); Alkaline Phosphatase 118 U/L (41-126); Blood Urea Nitrogen 24.6 mg/dL (9.0-27.0); Calcium 10.8 mg/dL (8.7-10.3); Carbon Dioxide 26.1 mmol/L (21.6-31.8); Chloride 108 mmol/L (96-109); Chol/HDL Ratio 2.72 Ratio; Globulin 2.6 g/dL (1.6-3.3); Glucose 97 mg/dL (70-110); LDL Cholesterol,Calculated 66.6 mg/dL (0.0-131.0); Potassium 5.1 mmol/L (3.5-5.5); Sodium 142 mmol/L (135-145); Total Bilirubin 0.4 mg/dL (0.3-1.2); Total Protein 6.7 g/dL (6.2-8.2); VLDL Calculation 12.96 mg/dL (5.00-40.00)
== END | disposition home or self-care (01) ==
LOC: LABWHC1 07:43
PROVIDERS: ATTEND Internal Medicine Interventional Cardiology
DX: I10 Essential (primary) hypertension (principal); E78.2 Mixed hyperlipidemia; E11.9 Type 2 diabetes mellitus without complications
CPT/HCPCS: 36415; 80053; 80061; 83036

== ENCOUNTER → 2024-04-21 | Outpatient (CLI) | payer MEDICARE ==
[2024-04-21 11:07] LABS: Calcium 10.7 mg/dL (8.7-10.3); Carbon Dioxide 27.1 mmol/L (21.6-31.8); Chloride 108 mmol/L (96-109); Glucose 101 mg/dL (70-110); Potassium 4.7 mmol/L (3.5-5.5); Sodium 141 mmol/L (135-145)
== END | disposition home or self-care (01) ==
LOC: LABWHC1 07:23
PROVIDERS: ATTEND Urology
DX: C61 Malignant neoplasm of prostate (principal)
CPT/HCPCS: 36415; 80048; 84153

== ENCOUNTER → 2024-05-06 | Outpatient (CLI) | payer MEDICARE ==
--- NOTE | 2024-05-06 13:30 | US ---
EXAMINATION TYPE: US kidneys/renal and bladder DATE OF EXAM: 05/06/2024 COMPARISON: NONE CLINICAL INDICATION: Male, 89 years old with history of N20.0 KIDNEY STONE LEFT KIDNEY,E41.02; Hx of stones. EXAM MEASUREMENTS: Right Kidney: 8.6 x 4.8 x cm Left Kidney: 11.5 x 4.7 x 4.1 cm. Right Kidney: * Hypoechoic area upper pole 5.5 x 6.8 x 8.4 cm. * Anechoic area mid pole 1.2 x 1.8 x 1.1 cm. * No hydronephrosis. * Nonobstructing renal calculi from prior CT are less well appreciated. Left Kidney: * Multiple echogenic areas seen possible stone. * Hypoechoic area seen upper pole 2.5 x 4.4 x 5.4 cm. * No hydronephrosis. Bladder: Anechoic Bilateral Jets seen: Right only. IMPRESSION: 1. No evidence for obstructive uropathy. 2. Bilateral incidental renal cyst. 3. No significant bilateral renal calculi
== END | disposition home or self-care (01) ==
LOC: RADUSWWP 12:46
PROVIDERS: ATTEND Urology
DX: D41.02 Neoplasm of uncertain behavior of left kidney (principal); N28.1 Cyst of kidney, acquired
CPT/HCPCS: 76770

== ENCOUNTER → 2024-08-10 | Outpatient (CLI) | payer MEDICARE ==
[2024-08-10 11:01] LABS: ALT 20 U/L (10-49); AST 23 U/L (14-35); Albumin 3.9 g/dL (3.8-4.9); Albumin/Globulin Ratio 1.56 Ratio (1.60-3.17); Alkaline Phosphatase 138 U/L (41-126); BUN/Creat Ratio 20.67 Ratio (12.00-20.00); Blood Urea Nitrogen 24.8 mg/dL (9.0-27.0); Calcium 10.6 mg/dL (8.7-10.3); Chloride 107 mmol/L (96-109); Chol/HDL Ratio 2.43 Ratio; Globulin 2.5 g/dL (1.6-3.3); Glucose 100 mg/dL (70-110); LDL Cholesterol,Calculated 62.2 mg/dL (0.0-131.0); Potassium 4.7 mmol/L (3.5-5.5); Sodium 140 mmol/L (135-145); Total Bilirubin 0.4 mg/dL (0.3-1.2); Total Protein 6.4 g/dL (6.2-8.2); VLDL Calculation 11.96 mg/dL (5.00-40.00)
== END | disposition home or self-care (01) ==
LOC: LABWHC1 07:25
PROVIDERS: ATTEND Internal Medicine Interventional Cardiology
DX: E78.2 Mixed hyperlipidemia (principal)
CPT/HCPCS: 36415; 80053; 80061

== ENCOUNTER → 2024-12-25 | Outpatient (CLI) | payer SELFPAY ==
--- NOTE | 2024-12-26 07:28 | US ---
EXAMINATION TYPE: US kidneys/renal and bladder DATE OF EXAM: 12/25/2024 COMPARISON: 05/06/24 US, 09/13/23 MRI CLINICAL INDICATION: Male, 89 years old with history of N20.0 CALCULUS OF KIDNEY; Hx calc, renal mas ses TECHNIQUE: Grayscale imaging of the bilateral kidneys and urinary bladder: FINDINGS: EXAM MEASUREMENTS: Right Kidney: 10.7x4.7x7.1 cm Left Kidney: 11.6x4.6x4.3 cm Right Kidney: cortical thinning, several cysts largest measuring 6.0x6.0x5.8cm Left Kidney: cortical thinning, large stone measures up to 0.8cm, several cystic regions, two solid a reas: Lateral upper pole: 3.9x3.2x3.1cm Medial upper pole: 4.3x3.6x2.7cm Bladder: wnl There is no evidence for hydronephrosis at this point in time. The urinary bladder is anechoic. Incr eased cortical echogenicity bilaterally is present. exam limited by bowel gas IMPRESSION: Suboptimal study. Left-sided nephrolithiasis. Evidence of chronic medical renal disease. Suspicious medial left renal mass on recent MRI less well seen on today's ultrasound. Advise continue d CT/MRI monitoring. [facility], , 12/26/2024 7:26 AM
== END | disposition home or self-care (01) ==
LOC: RADUSWWP 15:48
PROVIDERS: ATTEND Urology
DX: D41.02 Neoplasm of uncertain behavior of left kidney (principal); N20.0 Calculus of kidney; N28.1 Cyst of kidney, acquired
CPT/HCPCS: 76770

== ENCOUNTER → 2025-01-11 | Outpatient (CLI) | payer MEDICARE ==
[2025-01-11 10:37] LABS: ALT 26 U/L (10-49); AST 26 U/L (14-35); Chol/HDL Ratio 2.66 Ratio; LDL Cholesterol,Calculated 67.2 mg/dL (0.0-131.0); VLDL Calculation 14.62 mg/dL (5.00-40.00)
== END | disposition home or self-care (01) ==
LOC: LABWHC1 07:32
PROVIDERS: ATTEND Family Medicine
DX: E78.2 Mixed hyperlipidemia (principal); E11.9 Type 2 diabetes mellitus without complications
CPT/HCPCS: 36415; 80061; 83036; 84450; 84460